=== PATIENT | female | born 1980 | race Two or more races ===

== ENCOUNTER 2017-03-04 21:52 | Emergency (ER) | payer OTHER ==
[2017-03-05 00:59] LABS: ABSOLUTE NEUTROPHIL COUNT 3.3 K/mm3 (1.8-7.7); BASO % 0.6 % (0.2-1.0); EOS # 0.3 (0.0-0.5); EOS % 3.5 % (0.9-2.9); HEMATOCRIT 37.6 % (37.0-47.0); HEMOGLOBIN 12.7 gm/l (12.0-16.0); IMM NEUT% 0.1 % (0-1); LYMPH # 2.9 (1.0-4.8); LYMPH % 41.3 % (15-45); MEAN CELL VOLUME 90.4 fl (81.0-99.0); MEAN CORPUSCULAR HEMOGLOBIN 30.5 pg (27.0-31.0); MEAN CORPUSCULAR HGB CONC 33.8 g/dl (33.0-37.0); MEAN PLATELET VOLUME 9.4 fl (7.4-10.4); MONO # 0.6 (0.0-0.8); MONO % 7.8 % (4-12); NEUT % 46.7 % (43-75); PLATELET COUNT 253 K/mm3 (130-400); RED CELL DISTRIBUTION WIDTH 12.4 % (11.5-14.5)
[2017-03-05 01:15] LABS: ALB/GLOB RATIO 1.2 (>1.0); ALBUMIN 4.2 gm/dL (3.5-5.7)
== END 2017-03-05 02:31 | disposition home or self-care (01) ==
LOC: ED 21:52
DX: R55 Syncope and collapse (principal); R53.1 Weakness